=== PATIENT | male | born 1965 | race Caucasian/White ===

== ENCOUNTER → 2020-01-02 | Outpatient (CLI) | payer OTHER ==
--- NOTE | 2020-01-02 16:14 | RADIOLOGY REPORT (SQ) ---
EXAM DESCRIPTION: HIP RIGHT AP/LATERAL IMAGES COMPLETED DATE/TIME: 01/02/2020 3:05 pm REASON FOR STUDY: (M13.80)OTHER SPECIFIED ARTHRITIS, UNSPECIFIED SITE M13.80 OTHER SPECIFIED ARTHRI TIS, UNSPECIFIED SITE COMPARISON: None. NUMBER OF VIEWS: Two views. TECHNIQUE: AP pelvis and additional frog legview of the right hip. LIMITATIONS: None. FINDINGS: Advanced osteoarthritis in the right hip with near bone on bone contact and remodeling of the femoral head. Small granuloma or dystrophic calcification overlying the soft tissues lateral to the greater trochanter of unlikely clinical significance. SI joints are normal. Lower lumbar fusion . IMPRESSION: Advanced osteoarthritis right hip. TECHNICAL DOCUMENTATION: JOB ID: [id number] 2010 [employer]- All Rights Reserved Reading location - IP/workstation name: [email or web address]
== END ==
LOC: RAD 14:45
PROVIDERS: ATTEND Orthopaedic Surgery
DX: M16.11 Unilateral primary osteoarthritis, right hip (principal)